=== PATIENT | male | born 1990 | race Hispanic/Latino ===

== ENCOUNTER 2018-05-14 01:05 | Emergency (ER) | payer OTHER ==
[~2018-05-14] VITALS: Ht 167.6 cm; Wt 97.5 kg
[2018-05-14] MEDS ORDERED: KETOROLAC TROMETHAMINE 30 MG/ML VIAL ONE (01:14)
[2018-05-14] MEDS ORDERED: ONDANSETRON HCL INJ 2 MG/ML VIAL ONE (01:14)
[2018-05-14] MEDS ORDERED: ONDANSETRON HCL INJ 2 MG/ML VIAL IV STA (01:16)
[2018-05-14] MEDS ORDERED: MORPHINE SULFATE 2 MG/ML SYR IV STA (01:16)
[2018-05-14] MEDS ORDERED: KETOROLAC TROMETHAMINE 30 MG/ML VIAL IV STA (01:16)
[2018-05-14] MEDS ORDERED: SODIUM CHLORIDE 0.9% 1000ML 1,000 ML IV STA (01:16)
[2018-05-14 01:33] LABS: BASOPHILS # (AUTO) 0.1 (0.0-0.1); BASOPHILS % 0.7 % (0.0-1.0); EOSINOPHILS # (AUTO) 0.3 (0.0-0.4); EOSINOPHILS % 1.9 % (0.0-6.0); LYMPHOCYTES # (AUTO) 6.2 (1.0-3.2); LYMPHOCYTES % 47.5 % (18.0-39.1); MEAN CORPUSCULAR HEMOGLOBIN 31.6 pg (28-32); MEAN CORPUSCULAR HGB CONC 34.9 g/dL (31-35); MEAN CORPUSCULAR VOLUME 90.5 fL (81-99); MONOCYTES # (AUTO) 1.2 (0.2-0.8); NEUTROPHILS # (AUTO) 5.3 (2.1-6.9); NEUTROPHILS % 40.5 % (38.7-80.0); PLATELET COUNT 310 x10e3/uL (140-360); RED BLOOD COUNT 4.75 x10e6/uL (4.3-5.7)
[2018-05-14 01:41] LABS: INR 0.98; PROTHROMBIN TIME 12.2 seconds (11.9-14.5)
[2018-05-14 01:42] LABS: PARTIAL THROMBOPLASTIN TIME 24.3 seconds (23.8-35.5)
[2018-05-14 01:43] LABS: BILIRUBIN,URINE NEGATIVE (NEGATIVE); CLARITY,URINE CLEAR (CLEAR); COLOR,URINE YELLOW (YELLOW); KETONES,URINE NEGATIVE (NEGATIVE); LEUKOCYTE ESTERASE ,URINE NEGATIVE (NEGATIVE); NITRITE,URINE NEGATIVE (NEGATIVE); PROTEIN,URINE DIPSTICK NEGATIVE (NEGATIVE); URINE UROBILINOGEN 0.2 mg/dL (0.2 - 1)
[2018-05-14 01:46] LABS: EPITHELIAL CELLS,URINE FEW /LPF; RBC,URINE 0-5 /HPF (0-5); WBC,URINE (MAN) 0-5 /HPF (0-5)
[2018-05-14 01:50] LABS: ALANINE AMINOTRANSFERASE 51 IU/L (0-55); ALBUMIN 4.2 g/dL (3.5-5.0); ALBUMIN/GLOBULIN RATIO 1.3 (0.8-2.0); ALKALINE PHOSPHATASE 50 IU/L (40-150); AMYLASE 43 U/L (25-125); ANION GAP 15.8 mmol/L (8-16); BLOOD UREA NITROGEN 11 mg/dL (7-26); BUN/CREATININE RATIO 14 (6-25); CALCIUM 9.4 mg/dL (8.4-10.2); CARBON DIOXIDE 24 mmol/L (22-29); CHLORIDE 106 mmol/L (98-107); CREATINE KINASE 190 IU/L (30-200); CREATININE, SERUM 0.81 mg/dL (0.72-1.25); EST GLOMERULAR FILTRATION RATE > 60 ML/MIN (60-); GLUCOSE 112 mg/dL (74-118); LIPASE 16 U/L (8-78); MAGNESIUM 2.2 MG/DL (1.3-2.1); POTASSIUM 3.8 mmol/L (3.5-5.1); SODIUM 142 mmol/L (136-145)
--- NOTE | 2018-05-14 02:40 | Diagnostic Imaging Report ---
CHEST SINGLE (PORTABLE), 05/14/2018 1:16 AM Technique: CHEST SINGLE (PORTABLE) Comparison: 10/30/2010 Clinical history: Abdominal/right flank pain Findings: See Impression Impression: 1. Enlarged cardiomediastinal silhouette, likely accentuated by portable lordotic technique. 2. No consolidation or edema. No effusion or pneumothorax. Signed by: Dr Trista Chowdary MD on 05/14/2018 2:37 AM
--- NOTE | 2018-05-14 02:48 | Diagnostic Imaging Report ---
EXAM: CT ABDOMEN/PELVIS WO DATE: 05/14/2018 1:16 AM INDICATION: \S\Stone Protocol, H/O KIDNEY STONES, RIGHT FLANK AND RUQ ABD \S\[id number] \S\0144 \S\Y COMPARISON: 03/19/2018 TECHNIQUE: The abdomen and pelvis were scanned using a multidetector helical scanner. Coronal and sagittal reformations were obtained. Routine protocol performed. IV Contrast: 0 ml Isovue 300/370 FINDINGS: Lack of IV contrast decreases sensitivity in evaluating abdominal and pelvic organs. LOWER THORAX: Lingular atelectasis/scarring. LIVER/BILIARY: Possible hepatic steatosis. No gross masses. GALLBLADDER: Unremarkable SPLEEN: Unremarkable PANCREAS: Unremarkable ADRENALS: No nodules KIDNEYS: No renal stones. Trace right pelvocaliectasis. There is a punctate 1 to 2 mm stone at the right UVJ. GI TRACT: No wall thickening or evidence of obstruction. Diverticulosis. No evidence of appendicitis. VESSELS: Unremarkable noncontrast appearance. PERITONEUM/RETROPERITONEUM: No free air or fluid LYMPH NODES: No lymphadenopathy REPRODUCTIVE ORGANS/BLADDER: Unremarkable. Decompressed bladder. BONES: No suspicious bone lesions. IMPRESSION: 1-2 mm right UVJ stone without significant hydroureteronephrosis. Signed by: Dr Trista Chowdary MD on 05/14/2018 2:44 AM
== END 2018-05-14 03:18 | disposition home or self-care (01) ==
LOC: ER 01:05
DX: R10.11 Right upper quadrant pain (principal); R11.0 Nausea; N20.1 Calculus of ureter
CPT/HCPCS: 36415; 71045; 74176; 80053; 81001; 82150; 82550; 82553; 83690; 83735; 84484; 85025; 85610; 85730; 87086; 99284; J1885; J2270; J2405; J7030

== ENCOUNTER 2019-09-13 18:58 | Emergency (ER) | payer OTHER ==
[~2019-09-13] VITALS: Ht 170.2 cm; Wt 114.3 kg
[2019-09-13] MEDS ORDERED: KETOROLAC TROMETHAMINE 30 MG/ML VIAL IV ONE (19:01)
[2019-09-13] MEDS ORDERED: ONDANSETRON HCL INJ 2MG/ML 2ML 2 MG/ML VIAL IV ONE (19:01)
[2019-09-13] MEDS ORDERED: SODIUM CHLORIDE 0.9% 1000ML 1,000 ML IV SCH (19:15)
--- NOTE | 2019-09-13 20:05 | Diagnostic Imaging Report ---
EXAMINATION: CT of the abdomen and pelvis without contrast. TECHNIQUE: Helical CT images of the abdomen and pelvis were performed from the lung bases to the lesser trochanters. No intravenous contrast was given per renal stone protocol. Coronal and sagittal reformatted images were obtained.Dose modulation, iterative reconstruction, and/or weight based adjustment of the mA/kV was utilized to reduce the radiation dose to as low as reasonably achievable. COMPARISON: None. CLINICAL HISTORY:Urinary retention DISCUSSION: ABSENCE OF INTRAVENOUS CONTRAST DECREASES SENSITIVITY FOR DETECTION OF FOCAL LESIONS AND VASCULAR PATHOLOGY. ABDOMEN/PELVIS: LOWER THORAX: Unremarkable. HEPATOBILIARY:No focal hepatic lesions. No biliary ductal dilation. The gallbladder is normal. SPLEEN: No splenomegaly. PANCREAS: No focal masses or ductal dilatation. ADRENALS: No adrenal nodules. KIDNEYS/URETERS: Punctate right renal calculus. No hydronephrosis. PELVIC ORGANS/BLADDER: 2 mm calculus within the bladder. PERITONEUM/RETROPERITONEUM: No free air or fluid. LYMPH NODES: No intra-abdominal,retroperitoneal, pelvic or inguinal lymphadenopathy. VESSELS: Limited evaluation. GI TRACT: No distention or wall thickening. Appendix is normal. BONES AND SOFT TISSUES: No bony destructive lesions. No soft tissue abnormalities. IMPRESSION: 2 mm calculus within the bladder, recently passed Punctate right renal calculus. Signed by: Dr. Michael Harris M.D. on 09/13/2019 8:02 PM
[2019-09-13] MEDS ORDERED: FLOMAX0.4 MG PO (20:19)
[2019-09-13] MEDS ORDERED: NAPROSYN500 MG PO (20:19)
[2019-09-13] MEDS ORDERED: ZOFRAN4 MG PO (20:19)
== END 2019-09-13 20:31 | disposition home or self-care (01) ==
LOC: FSED 18:58
DX: R33.9 Retention of urine, unspecified (principal); N20.1 Calculus of ureter
CPT/HCPCS: 74176; 80053; 81003; 85025; 99283

== ENCOUNTER 2020-03-14 09:01 | Emergency (ER) | payer OTHER ==
[~2020-03-14] VITALS: Ht 170.2 cm; Wt 114.3 kg
[~2020-03-14 09:01] MED LIST: FLOMAX0.4 MG PO; NAPROSYN500 MG PO; ZOFRAN4 MG PO
--- OUTSIDE RECORDS SUMMARY | 2020-03-14 09:04 | XMS REPORT ---
Author Author [facility] Organization [facility] Address [address] [place] [address] Phone Unavailable Care Team Providers Care Network Operations Analyst Name Role Phone Jose LOWRY PCP Remi PROCTOR Attphys Unavailable Jose BURCH Attphys Unavailable Payers Payer Name Policy Type Policy Number Effective Date Expiration Date S flip Miscellaneous Ppo [id number] 2011 00:00:00 [facility] [id number] 2011 00:00:00 [facility] [id number] Miscellaneous Ppo [id number] 2011 00:00:00 [facility] [id number] 2011 00:00:00 [facility] Problems This patient has no known problems. Allergies, Adverse Reactions, Alerts This patient has no known allergies or adverse reactions. Medications Ordered Medication Name Filled Medication Name Start Date Stop Da te Current Medication? Ordering Clinician Indication Dosage Frequency Signature (SIG) Comments Components Source Naproxen (Naprosyn) 500 Mg Tablet Naproxen (Naprosyn) 500 Mg Tablet 2019-09-13 00:00:00 Yes Abigail Proctor Md 500 Twice A Day as needed for Pain [facility] Ondansetron Hcl (Zofran*) 4 Mg Tablet Ondansetron Hcl (Zofra n*) 4 Mg Tablet 2019-09-13 00:00:00 Yes Abigail Proctor Md 4 Thre e Times A Day [facility] Tamsulosin Hcl (Flomax*) 0.4 Mg Cap Tamsulosin Hcl (Flomax*) 0.4 Mg Cap 2019-09-13 00:00:00 Yes Abigail Proctor Md .4 Anushka y [facility] Procedures This patient has no known procedures. Encounters Start Date/Time End Date/Time [facility] Source 2019-09-13 18:58:00 2019-09-13 20:31:00 Departed Emergency Room 1 ABIGAIL PROCTOR [facility] [id number] [facility] 2018-05-14 01:05:00 2018-05-14 03:18:00 Departed Emergency Room 1 BELEM BURCH [facility] [id number] [facility] Results Test Description Test Time Test Comments Results Result Comments Source CT ABD/PEL WO CONTRAST-HOPD 2019-09-13 19:58:00 [place] [address] Patient Name: SANDRA MOLINA JR MR #: [id number] : 1990 Age/Sex: 29/M Req #: [id number] Adm Physician: Ordered by: ABIGAIL PROCTOR MD Report #: [id number] Location: FS Room/Bed: Procedure: [id number] HOPD/CT ABD/PEL WO CONTRAST-HOPD Exam Date: 09/13/19 Exam Time: 1947 REPORT STATUS: Signed EXAMINATION: CT of the abdomen and pelvis without contrast. TECHNIQUE: Helical CT images of the abdomen and pelvis were performed from the lung bases to the lesser trochanters. No intravenous contrast was given per renal stone protocol. Coronal and sagittal reformatted images were obtained.Dose modulation, iterative reconstruction, and/or weight based adjustment of the mA/kV was utilized to reduce the radiation dose to as low as reasonably achievable. COMPARISON: None. CLINICAL HISTORY:Urinary retention DISCUSSION: ABSENCE OF INTRAVENOUS CONTRAST DECREASES SENSITIVITY FOR DETECTION OF FOCAL LESIONS AND VASCULAR PATHOLOGY. ABDOMEN/PELVIS: LOWER THORAX: Unremarkable. HEPATOBILIARY:No focal hepatic lesions. No biliary ductal dilation. The gallbladder is normal. SPLEEN: No splenomegaly. PANCREAS: No focal masses or ductal dilatation. ADRENALS: No adrenal nodules. KIDNEYS/URETERS: Punctate right renal calculus. No hydronephrosis. PELVIC ORGANS/BLADDER: 2 mm calculus within the bladder. PERITONEUM/RETROPERITONEUM: No free air or fluid. LYMPH NODES: No intra- abdominal,retroperitoneal, pelvic or inguinal lymphadenopathy. VESSELS: Limited evaluation. GI TRACT: No distention or wall thickening. Appendix is normal. BONES AND SOFT TISSUES: No bony destructive lesions. No soft tissue abnormalities. IMPRESSION: 2 mm calculus within the bladder, recently passed Punctate right renal calculus. Signed by: Dr. Yobany Jones M.D. on 09/13/2019 8:02 PM Dictated By: YOBANY JONES MD 01 Transcribed By: GARCÍA on 09/13/192001 COPY TO: ABIGAIL PROCTOR MD CT ABDOMEN/PELVIS WO 2018-05-14 02:37:00 [place] [address] Patient Name: SANDRA MOLINA JR MR #: [id number] : 1990 Age/Sex: 27/M Req #: [id number] Adm Physician: Ordered by: BELEM BURCH MD Report #: [id number] Location: ER Room/Bed: Procedure: [id number] CT/CT ABDOMEN/PELVIS WO Exam Date: 05/14/18 Exam Time: 0144 REPORT STATUS: Signed EXAM: CT ABDOMEN/PELVIS WO DATE: 05/14/2018 1:16 AM INDICATION: S Stone Protocol, H/O KIDNEY STONES, RIGHT FLANK AND RUQ ABD COMPARISON: 03/19/2018 TECHNIQUE: The abdomen and pelvis were scanned using a multidetector helical scanner. Coronal and sagittal reformations were obtained. Routine protocol performed. IV Contrast: 0 ml Isovue 300/370 FINDINGS: Lack of IV contrast decreases sensitivity in evaluating abdominal and pelvic organs. LOWER THORAX: Lingular atelectasis/scarring. LIVER/BILIARY: Possible hepatic steatosis. No gross masses. GALLBLADDER: Unremarkable SPLEEN: Unremarkable PANCREAS: Unremarkable ADRENALS: No nodules KIDNEYS: No renal stones. Trace right pelvocaliectasis. There is a punctate 1 to 2 mm stone at the right UVJ. GI TRACT: No wall thickening or evidence of obstruction. Diverticulosis. No evidence of appendicitis. VESSELS: Unremarkable noncontrast appearance. PERITONEUM/RETROPERITONEUM: No free air or fluid LYMPH NODES: No lymphadenopathy REPRODUCTIVE ORGANS/BLADDER: Unremarkable. Decompressed bladder. BONES: No suspicious bone lesions. IMPRESSION: 1-2 mm right UVJ stone without significant hydroureteronephrosis. Signed by: Dr Deyanira Chowdary MD on 05/14/2018 2:44 AM Dictated By: DEYANIRA CHOWDARY MD 3 Transcribed By: GARCÍA on 05/14/18243 COPY TO: BELEM BURCH MD CHEST SINGLE (PORTABLE) 2018-05-14 02:33:00 [facility] [address] [place] [address] Patient Name: SANDRA MOLINA JR MR #: [id number] : 1990 Age/Sex: 27/M Req #: [id number] Adm Physician: Ordered by: BELEM BURCH MD Report #: [id number] Location: ER Room/Bed: Procedure: [id number] DX/CHEST SINGLE (PORTABLE) Exam Date: 05/14/18 Exam Time: 0154 REPORT STATUS: Signed CHEST SINGLE (PORTABLE), 05/14/2018 1:16 AM Technique: CHEST SINGLE (PORTABLE) Comparison: 10/30/2010 Clinical history: Abdominal/right flank pain Findings: See Impression Impression: 1. Enlarged cardiomediastinal silhouette, likely accentuated by portable lordotic technique. 2. No consolidation or edema. No effusion or pneumothorax. Signed by: Dr Deyanira Chowdary MD on 05/14/2018 2:37 AM Dictated By: DEYANIRA CHOWDARY MD 6 Transcribed By: GARCÍA on 05/14/18236 COPY TO: BELEM BURCH MD
[2020-03-14] MEDS ORDERED: KETOROLAC TROMETHAMINE 30 MG/ML VIAL ONE (09:30)
[2020-03-14] MEDS ORDERED: ONDANSETRON HCL 4 MG ORAL DISINTEGRATING TAB ONE (09:30)
[2020-03-14] MEDS ORDERED: SODIUM CHLORIDE 0.9% 1000ML 1,000 ML ONE (09:30)
[2020-03-14] MEDS ORDERED: MORPHINE SULFATE 5 MG/ML VIAL IV ONE ×2 (10:15→10:45)
[2020-03-14] MEDS ORDERED: KETOROLAC TROMETHAMINE 30 MG/ML VIAL IV STA (10:17)
[2020-03-14] MEDS ORDERED: SODIUM CHLORIDE 0.9% 1000ML 1,000 ML IV STA (10:18)
[2020-03-14] MEDS ORDERED: MORPHINE SULFATE INJ 4 MG/ML INJ 1ML ONE ×2 (10:24→10:41)
[2020-03-14] MEDS ORDERED: ONDANSETRON HCL 4 MG ORAL DISINTEGRATING TAB PO ONE (10:30)
--- NOTE | 2020-03-14 10:41 | Emergency Department Note ---
History of Present Illnes History of Present Illness Chief Complaint: Abdominal Complaints History of Present Illness This is a 29 year old male . Historian: Patient Arrival Mode: Car Onset (how long ago): day(s) (1) Location: r flank Quality: SHARP Radiation: abdomen Severity: severe Onset quality: sudden Duration (how long): day(s) (1) Timing of current episode: constant Progression: worsening Chronicity: recurrent Relieving factors: none Exacerbating factors: none Associated symptoms: nausea/vomiting Treatments prior to arrival: none Past Medical/Family History Physician Review I have reviewed the patient's past medical and family history. Any updates have been documented here. Past Medical History Recent Fever: No Clinical Suspicion of Infectio: No New/Unexplained Change in Ment: No Past Medical History: Kidney Stones Past Surgical History: None Social History Smoking Cessation: Unknown if ever smoked Counseling Performed: No Alcohol Use: None Any Illegal Drug Use: No TB Exposure/Symptoms: No Physically hurt or threatened: No Other Last Tetanus: utd Last Flu: UNK Last Pneumovax: UNK Review of Systems Review of Systems Constitutional: no symptoms EENTM: no symptoms Cardiovascular: no symptoms Respiratory: no symptoms Gastrointestinal: no symptoms, abdominal pain, vomiting Genitourinary: no symptoms Musculoskeletal: no symptoms Integumentary: no symptoms Neurological: no symptoms Psychological: no symptoms Endocrine: no symptoms Hematological/Lymphatic: no symptoms Review of other systems All other systems reviewed and negative. Physical Exam Related Data Allergies: Coded Allergies: No Known Drug Allergies (Verified Allergy, Mild, 09/01/12) Triage Vital Signs Vital Signs Date Time Temp Pulse Resp B/P (MAP) Pulse Ox O2 Delivery O2 Flow Rate FiO2 03/14/20 09:05 98.5 89 18 133/89 99 Physical Exam CONSTITUTIONAL Constitutional: well-developed, well-nourished HENT HENT: normocephalic, atraumatic, oropharynx clear/moist, nose normal HENT - Ear: left ext ear normal, right ext ear normal EYES Eyes: PERRL, conjunctivae normal NECK Neck: ROM normal PULMONARY Pulmonary: effort normal, breath sounds normal CARDIOVASCULAR Cardiovascular: regular rhythm, heart sounds normal, capillary refill normal, normal rate GASTROINTESTINAL Abdominal: soft, nontender, bowel sounds normal GENITOURINARY Genitourinary: exam deferred SKIN Skin: warm, dry MUSCULOSKELETAL Musculoskeletal: ROM normal NEUROLOGICAL Neurological: alert, oriented x 3, no gross motor or sensory deficits PSYCHOLOGICAL Psychiatric/behavioral: mood/affect normal, judgement normal Results Laboratory Lab results reviewed: Yes Imaging Imaging results reviewed: Yes Critical Care Time Subsequent provider I assumed direction of critical care for this patient from another provider of my specialty. Assessment & Plan Assessment & Plan Problems: (1) Vomiting (2) Hydronephrosis (3) Renal colic on right side (4) Kidney stone on right side Reassessment Reassessment FEELING BETTER Depart Disposition: HOME, SELF-CARE Last Vital Signs Date Time Temp Pulse Resp B/P (MAP) Pulse Ox O2 Delivery O2 Flow Rate FiO2 03/14/20 09:05 98.5 89 18 133/89 99 Home Meds Active Scripts Ondansetron Hcl* (ZOFRAN*) 4 Mg Tablet, 4 MG PO TID for 3 Days, #10 Prov:ABIGAIL MELCHOR MD 09/13/19 Tamsulosin Hcl* (FLOMAX*) 0.4 Mg Cap, 0.4 MG PO DAILY for 14 Days, #14 CAP Prov:ABIGAIL MELCHOR MD 09/13/19 Naproxen (NAPROSYN) 500 Mg Tablet, 500 MG PO BID PRN for pain for 7 Days, #15 Prov:ABIGAIL MELCHOR MD 09/13/19 Medications in the ED Ondansetron HCl 4 mg STK-MED ONCE .ROUTE ; Start 03/14/20 at 09:30; Stop 03/14/20 at 09:25; Status DC Ketorolac Tromethamine 30 mg STK-MED ONCE .ROUTE ; Start 03/14/20 at 09:30; Stop 03/14/20 at 09:25; Status DC Sodium Chloride 1,000 ml @ ud STK-MED ONCE .ROUTE ; Start 03/14/20 at 09:30; Stop 03/14/20 at 09:25; Status DC Morphine Sulfate 2 mg ONCE ONCE IV Last administered on 03/14/20at 10:22; Admin Dose 2 MG; Start 03/14/20 at 10:15; Stop 03/14/20 at 10:24; Status DC Ketorolac Tromethamine 30 mg ONCE STAT IV Last administered on 03/14/20at 09:30; Admin Dose 30 MG; Start 03/14/20 at 10:17; Stop 03/14/20 at 10:22; Status DC Ondansetron HCl 4 mg ONCE ONCE PO Last administered on 03/14/20at 09:30; Admin Dose 4 MG; Start 03/14/20 at 10:30; Stop 03/14/20 at 10:31; Status DC Morphine Sulfate 4 mg STK-MED ONCE .ROUTE ; Start 03/14/20 at 10:24; Stop 03/14/20 at 10:18; Status DC Sodium Chloride 1,000 ml @ 0 mls/hr Q0M STAT IV Last administered on 03/14/20at 09:30; Admin Dose 1,000 MLS/HR; Start 03/14/20 at 10:18; Stop 03/14/20 at 10:20; Status DC Morphine Sulfate 4 mg ONCE ONCE IV ; Start 03/14/20 at 10:45; Stop 03/14/20 at 10:46; Status UNV Morphine Sulfate 4 mg STK-MED ONCE .ROUTE ; Start 03/14/20 at 10:41; Stop 03/14/20 at 10:36; Status DC ANNE ROSENTHAL MD March 14, 2020 10:39
[2020-03-14] MEDS ORDERED: MORPHINE SULFATE INJ 4 MG/ML INJ 1ML IV ONE (10:45)
--- NOTE | 2020-03-14 10:55 | Diagnostic Imaging Report ---
EXAM: CT Abdomen and Pelvis WITHOUT intravenous contrast INDICATION: Right flank pain COMPARISON: CT abdomen and pelvis of 05/14/2018 TECHNIQUE: Abdomen and pelvis were scanned utilizing a multidetector helical scanner from the lung base to the pubic symphysis without administration of IV contrast. Coronal and sagittal reformations were obtained. Stone protocol was performed. IV CONTRAST: None ORAL CONTRAST: None RADIATION DOSE: Total DLP: 771 mGy*cm Dose modulation, iterative reconstruction, and/or weight based adjustment of the mA/kV was utilized to reduce the radiation dose to as low as reasonably achievable. FINDINGS: LOWER THORAX: Normal. HEPATOBILIARY: No focal liver lesion. Mildly distended gallbladder measures up to 4.4 cm diameter. No radiopaque gallstones appreciable on CT. No CT evidence of cholecystitis. SPLEEN: No splenomegaly. PANCREAS: No focal masses or ductal dilatation. ADRENALS: No adrenal nodules. KIDNEYS/URETERS: 3 mm calculus at the right ureterovesical junction. Minimal associated right hydroureteronephrosis. 2 mm right upper pole calculus. No left urinary calculi. No left hydronephrosis or hydroureter. PELVIC ORGANS/BLADDER: Unremarkable. PERITONEUM / RETROPERITONEUM: No free air or fluid. LYMPH NODES: No lymphadenopathy. VESSELS: Unremarkable. GI TRACT: No distention or wall thickening. BONES AND SOFT TISSUES: No acute osseous injury. No suspicious lytic or blastic lesions. IMPRESSION: 3 mm right ureterovesical junction calculus with minimal right hydroureteronephrosis. 2 mm right upper pole renal calculus. No left urinary calculi or hydronephrosis. Signed by: Isaac Rivas MD on 03/14/2020 10:52 AM
[2020-03-14] MEDS ORDERED: FLOMAX0.4 MG PO (11:02)
[2020-03-14] MEDS ORDERED: KETOROLAC TROME10 MG PO (11:04)
[2020-03-14] MEDS ORDERED: TYLENOL # 31 EA PO (11:05)
== END 2020-03-14 11:26 | disposition home or self-care (01) ==
LOC: FSED 09:01
DX: R10.9 Unspecified abdominal pain (principal); M54.5 Low back pain; R11.2 Nausea with vomiting, unspecified; N13.2 Hydronephrosis with renal and ureteral calculous obstruction
CPT/HCPCS: 74176; 80053; 81003; 85025; 99284; J1885; J2270; J7030; Q0162